=== PATIENT | female | born 1980 | race Two or more races ===

== ENCOUNTER 2020-09-17 08:39 | Outpatient (CLI) | payer OTHER | END 2020-09-17 09:15 | disposition home or self-care (01) | LOC: OFIC 805 08:39 | PROVIDERS: ATTEND Otolaryngology | DX: R09.89 Other specified symptoms and signs involving the circulatory and respiratory systems (principal); R13.19 Other dysphagia; K21.9 Gastro-esophageal reflux disease without esophagitis ==